=== PATIENT | male | born 1965 | race Caucasian/White ===

== ENCOUNTER → 2023-03-19 | Outpatient (CLI) | payer BC | LOC: COL.RAD 10:43 | DX: N18.9 Chronic kidney disease, unspecified (principal) ==

== ENCOUNTER → 2023-09-11 | Outpatient (CLI) | payer BC | LOC: COL.RAD 07:06 | DX: J96.20 Acute and chronic respiratory failure, unspecified whether with hypoxia or hypercapnia (principal) ==

== ENCOUNTER → 2023-11-07 | Outpatient (CLI) | payer BC | LOC: COL.RAD 09:05 | DX: M79.672 Pain in left foot (principal) ==